=== PATIENT | female | born 1990 | race Caucasian/White ===

== ENCOUNTER 2016-10-05 14:18 | Emergency (ER) | payer MEDICAID ==
[2016-10-05] MEDS ORDERED: DIAZEPAM 5 MG TAB ONE (18:50)
== END 2016-10-05 21:00 | disposition home or self-care (01) ==
LOC: ER 14:18
DX: R42 Dizziness and giddiness (principal)
CPT/HCPCS: 36415; 80053; 84439; 84443; 84703; 85025; 93005